=== PATIENT | male | born 1945 | race Caucasian/White ===

== ENCOUNTER 2018-12-18 10:45 | Outpatient (CLI) | payer MEDICARE, OTHER ==
[~2018-12-18] VITALS: Ht 182.9 cm; Wt 113.4 kg
[~2018-12-18 10:45] MED LIST: AMLO10TA7 PO; ASPI-586 PO; CARV6.252 PO; LOSA100T57 PO; METF-397 PO
[2018-12-18] MEDS ORDERED: FURO40TA4 PO (11:15)
[2018-12-18] MEDS ORDERED: METF-399 PO ×2 (11:15)
== END 2018-12-18 10:57 | disposition home or self-care (01) ==
LOC: PREOP 10:45
PROVIDERS: ATTEND Podiatrist
DX: Z01.818 Encounter for other preprocedural examination (principal)